=== PATIENT | female | born 1995 | race Caucasian/White ===

== ENCOUNTER 2018-11-10 11:13 | Emergency (ER) | payer MEDICAID ==
[2018-11-10] MEDS ORDERED: Orphenadrine 100 MG Tab.ER PO ONE (12:28)
[2018-11-10] MEDS ORDERED: Ketorolac 30 MG/ML SDV IM ONE (12:28)
--- NOTE | 2018-11-10 13:00 | EDM.PDOC ---
ED HPI GENERAL MEDICAL PROBLEM - General Chief Complaint: Back Pain or Injury Stated Complaint: BACK PAIN Time Seen by Provider: 11/10/18 11:41 Source of Information: Reports: Patient, RN Notes Reviewed History Limitations: Reports: No Limitations - History of Present Illness INITIAL COMMENTS - FREE TEXT/NARRATIVE: Patient is a 23 year old female who presents to the ED for the evaluation of chronic low back pain. She was seeing Hien Dallas NP in [place], [place]. She has moved to [place] and is setting up care with Altagracia Brody for this and has an appointment on . The patient states that she has a bulging disc of her right side on L4-5 for around 3 months now. She is out of her regular medications (meloxicam and gabapentin) and is now having increased pain in her back. She ran out of these medications last night. She has been trying to take ibuprofen, but this has not provided much relief. She has been going to a chiropractor and this has helped a little with the back pain as well. She states that she is unable to find a comfortable position laying down, standing up, sitting up straight or walking. She states that she has some numbness that runs down the lateral side of her right leg. She denies any loss of her bowels/ bladder. 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 She would rate her pain at an 8/10 today. right side of back Pain Score (Numeric/FACES): 7 - Related Data Allergies Allergy/AdvReac Type Severity Reaction Status Date / Time No Known Allergies Allergy Verified 11/10/18 11:27 Home Meds: Home Meds Ibuprofen 200 mg PO ASDIRECTED PRN 11/10/18 [History] Past Medical History Other HEENT History: dental surgery Musculoskeletal History: Reports: Back Pain, Chronic Other Musculoskeletal History: bulging L4-L5 - Past Surgical History Other Musculoskeletal Surgeries/Procedures:: spinal fusion Social & Family History - Family History Family Medical History: Noncontributory - Tobacco Use Smoking Status *Q: Former Smoker Used Tobacco, but Quit: No - Caffeine Use Caffeine Use: Reports: Soda - Recreational Drug Use Recreational Drug Use: No ED ROS GENERAL - Review of Systems Review Of Systems: See Below Constitutional: Reports: No Symptoms HEENT: Reports: No Symptoms Respiratory: Reports: No Symptoms Cardiovascular: Reports: No Symptoms Endocrine: Reports: No Symptoms GI/Abdominal: Reports: No Symptoms : Reports: No Symptoms Musculoskeletal: Reports: Back Pain, Leg Pain (right leg), Muscle Stiffness ( low back) Skin: Reports: No Symptoms Neurological: Reports: Numbness (lateral right leg). Denies: Difficulty Walking Psychiatric: Reports: No Symptoms Hematologic/Lymphatic: Reports: No Symptoms Immunologic: Reports: No Symptoms ED EXAM,LOWER BACK PAIN/INJURY - Physical Exam Exam: See Below Exam Limited By: No Limitations General Appearance: Alert, WD/WN, No Apparent Distress (patient is balled up in bed) Respiratory/Chest: No Respiratory Distress, Lungs Clear, Normal Breath Sounds, No Accessory Muscle Use, Chest Non-Tender Cardiovascular: Normal Peripheral Pulses, Regular Rate, Rhythm, No Murmur GI/Abdominal: Normal Bowel Sounds, Soft, Non-Tender, No Distention, No Mass Back Exam: Normal Inspection, Decreased Range of Motion (due to pain), Muscle Spasm (lumbar area) Extremities: Normal Inspection, Normal Capillary Refill Neurological: Alert, Normal Mood/Affect, Normal Dorsiflexion, Normal Plantar Flexion, Normal Reflexes, Oriented x 3, Abnormal Gait (limping gait), Straight Leg Raise (R). No: Straight Leg Raise (L), Saddle Anesthesia Psychiatric: Normal Affect, Normal Mood Skin Exam: Warm, Dry, Intact, Normal Color, No Rash Course - Vital Signs Last Recorded V/S: Last Vital Signs Temp 97.9 F 11/10/18 11:23 Pulse 97 11/10/18 11:23 Resp 18 11/10/18 11:23 BP 136/91 H 11/10/18 11:23 Pulse Ox 99 11/10/18 11:23 - Orders/Labs/Meds Meds: Medications Discontinued Medications Generic Name Dose Route Start Last Admin Trade Name Freq PRN Reason Stop Dose Admin Ketorolac Tromethamine 30 mg 11/10/18 12:28 11/10/18 12:40 Toradol IM 11/10/18 12:29 30 mg ONETIME ONE Administration Orphenadrine Citrate 100 mg 11/10/18 12:28 11/10/18 12:39 Norflex PO 11/10/18 12:29 100 mg ONETIME ONE Administration - Re-Assessments/Exams Free Text/Narrative Re-Assessment/Exam: 11/10/18 12:30 Pt presents to the ED for the evaluation of her chronic low back pain. Since she has set up an appointment with another PCP, I have called her prior PCP Hien Dallas NP in [place] and she is willing to refill her prior prescriptions until the patient can be seen by Altagracia Brody on . I have ordered 100mg PO norflex and 30mg IM toradol for pain relief in the ED and encourage the patient to get her prior medications filled and take them as previously prescribed. Pt is agreeable to this plan. 11/10/18 13:19 Pt was reassessed at bedside, she states that her pain is a little bit better but is still having some nerve pain. I feel it would be best for her to get her prescriptions filled and take them as previously directed. She is agreeable to this plan. Departure - Departure Time of Disposition: 12:49 Disposition: Home, Self-Care 01 Condition: Fair Clinical Impression: Low back pain Qualifiers: Chronicity: chronic Back pain laterality: right Sciatica presence: with sciatica Sciatica laterality: sciatica of right side Qualified Code(s): M54.41 - Lumbago with sciatica, right side - Discharge Information *PRESCRIPTION DRUG MONITORING PROGRAM REVIEWED*: No *COPY OF PRESCRIPTION DRUG MONITORING REPORT IN PATIENT ZAK: No Instructions: Back Injury Prevention, [id number], Back Pain, Adult, Easy-to- Read Referrals: Altagracia Brody PA-C [Ordering Only Provider] - Forms: ED Department Discharge Additional Instructions: You have been evaluated in the ED for your chronic low back pain. Your prior medications have been refilled by your previous provider, She did say she would sent them to [place] pharmacy in [place]. Please take them as previously directed. Please keep your appointment with Altagracia Brody on so that you may set up care with a new primary care provider. Please return to ED if your symptoms should change or worsen.
== END 2018-11-10 13:30 | disposition home or self-care (01) ==
LOC: JD.ED 11:13
DX: M54.41 Lumbago with sciatica, right side (principal); Z87.891 Personal history of nicotine dependence
CPT/HCPCS: 96372; 99283; A9270; J1885

== ENCOUNTER 2022-01-25 06:51 | Inpatient (IN) | payer MEDICAID ==
[~2022-01-25 06:51] MED LIST: Bupivacaine 0.25% 10 ML SDV ONE
[2022-01-25] MEDS ORDERED: Sodium Chloride 0.9% 10 ML Syringe FLUSH PRN (07:55)
[2022-01-25] MEDS ORDERED: Ondansetron 4 MG/2 ML SDV IVPUSH PRN (07:55)
[2022-01-25] MEDS ORDERED: Nalbuphine 10 MG/1 ML Vial IVPUSH PRN (07:55)
[2022-01-25] MEDS ORDERED: diphenhydrAMINE 50 MG/ML SDV IVPUSH PRN (07:59)
[2022-01-25] MEDS ORDERED: ePHEDrine 50 MG/ML SDV IVPUSH PRN (07:59)
[2022-01-25] MEDS ORDERED: fentaNYL 100 MCG/2 ML SDV EPIDUR PRN (07:59)
[2022-01-25] MEDS ORDERED: Oxytocin/Lactated Ringers 10 UNIT/1,000 ML BAG IV SCH ×2 (08:00)
[2022-01-25] MEDS: Lactated Ringers 1,000 ML IV SCH ×3 (08:22→13:51)
[2022-01-25] MEDS ORDERED: Ampicillin 2 GM in Sodium Chloride 0.9% 100 ML IV ONE (08:30)
[2022-01-25] MEDS ORDERED: Sodium Chloride 0.9% 10 ML Syringe FLUSH SCH (09:00)
[2022-01-25] MEDS: Bupivacaine/fentaNYL/NS 100 ML Bag EPIDUR PRN ×2 (11:55→19:29)
[2022-01-25] MEDS: Ampicillin 1 GM in Sodium Chloride 0.9% 100 ML IV SCH ×2 (12:25→16:08)
[2022-01-25] MEDS ORDERED: Oxytocin/Lactated Ringers 20 UNIT/1,000 ML BAG IV SCH (13:35)
[2022-01-25] MEDS ORDERED: Docusate Sodium 100 MG Cap PO PRN (21:44)
[2022-01-25] MEDS ORDERED: Acetaminophen 325 MG Tab PO PRN (21:44)
[2022-01-25] MEDS ORDERED: Witch Hazel Medicated Pads 40/Jar TOP PRN (21:44)
[2022-01-25] MEDS ORDERED: Benzocaine/Menthol 20%-0.5% Spray 78 GM Cannister TOP PRN (21:44)
[2022-01-25] MEDS: Ibuprofen 600 MG Tab PO PRN (23:09)
[2022-01-26] MEDS: Ampicillin 1 GM in Sodium Chloride 0.9% 100 ML IV SCH (04:48)
[2022-01-26] MEDS: Ibuprofen 600 MG Tab PO PRN ×3 (06:42→20:58)
[2022-01-27] MEDS: Ibuprofen 600 MG Tab PO PRN (06:12)
[2022-01-27] MEDS ORDERED: Measles, Mumps & Rubella Vaccine 0.5 ML SDV SUBCUT ONE (07:46)
== END 2022-01-27 09:00 | disposition home or self-care (01) | DRG 807 ==
LOC: JD.OB 06:51 → OBSVTOIN 19:55 → JD.OB 19:55
PROVIDERS: ADMIT Obstetrics & Gynecology; ATTEND Obstetrics & Gynecology
PROC: 3E033VJ Introduction of Other Hormone into Peripheral Vein, Percutaneous Approach (ICD-10-PCS; principal; 2022-01-25)
PROC: 10E0XZZ Delivery of Products of Conception, External Approach (ICD-10-PCS; 2022-01-25)
PROC: 0KQM0ZZ Repair Perineum Muscle, Open Approach (ICD-10-PCS; 2022-01-25)
PROC: 10907ZC Drainage of Amniotic Fluid, Therapeutic from Products of Conception, Via Natural or Artificial Opening (ICD-10-PCS; 2022-01-25)
PROC: 3E0R3BZ Introduction of Anesthetic Agent into Spinal Canal, Percutaneous Approach (ICD-10-PCS; 2022-01-25)
PROC: 3E0234Z Introduction of Serum, Toxoid and Vaccine into Muscle, Percutaneous Approach (ICD-10-PCS; 2022-01-25)
PROC: 00HU33Z Insertion of Infusion Device into Spinal Canal, Percutaneous Approach (ICD-10-PCS; 2022-01-25)
DX: O99.824 Streptococcus B carrier state complicating childbirth (principal); Z37.0 Single live birth; O66.0 Obstructed labor due to shoulder dystocia; O99.334 Smoking (tobacco) complicating childbirth; F17.200 Nicotine dependence, unspecified, uncomplicated; O70.1 Second degree perineal laceration during delivery; Z3A.39 39 weeks gestation of pregnancy; Z87.898 Personal history of other specified conditions; Z28.39 Other underimmunization status; Z98.1 Arthrodesis status; Z23 Encounter for immunization
CPT/HCPCS: 01967; 36415; 51702; 59025; 59409; 80306; 85027; 86592; 86850; 86900; 86901; 90471; 90707; A9270-GY; J0290; J2590; J3010; J3490; J7120